=== PATIENT | male | born 1975 | race African-American/Black ===

== ENCOUNTER 2021-09-29 19:47 | Emergency (ER) | payer OTHER ==
[~2021-09-29] VITALS: Ht 177.8 cm; Wt 73.0 kg
[2021-09-29 20:01] VITALS: BP 134/68
== END 2021-09-29 22:11 ==
LOC: ER 19:47
DX: S20.211A Contusion of right front wall of thorax, initial encounter (principal); X58.XXXA Exposure to other specified factors, initial encounter; Y93.89 Activity, other specified; Y92.89 Other specified places as the place of occurrence of the external cause; Y99.8 Other external cause status; E11.9 Type 2 diabetes mellitus without complications
CPT/HCPCS: 71101; 99283